=== PATIENT | female | born 1995 | race Caucasian/White ===

== ENCOUNTER 2022-05-30 11:57 | Emergency (ER) | payer SELFPAY ==
[~2022-05-30] VITALS: Ht 162.6 cm; Wt 74.8 kg
== END 2022-05-30 15:35 | disposition home or self-care (01) ==
LOC: ED 11:57
DX: O20.0 Threatened abortion (principal); O34.219 Maternal care for unspecified type scar from previous cesarean delivery; O21.9 Vomiting of pregnancy, unspecified; Z3A.16 16 weeks gestation of pregnancy
CPT/HCPCS: 36415; 76815; 76817; 80053; 81001; 83690; 85025; J2270; J2405; J7030